=== PATIENT | female | born 1980 | race Caucasian/White ===

== ENCOUNTER 2016-08-15 14:24 | Emergency (ER) | payer OTHER ==
[2016-08-15 14:31] VITALS: BP 99/62
[2016-08-15] MEDS ORDERED: NS 0.9% 1000 ML* 1,000 ML IV ONE (15:20)
[2016-08-15 15:46] LABS: Hematocrit 36 % (35-47); Hemoglobin 12.1 g/dl (12.0-16.0); Mean Corpuscular HGB Conc 34 g/dl (31-36); Mean Corpuscular Hemoglobin 31 pg (27-31); Mean Corpuscular Volume 91 fL (80-97); Mean Platelet Volume 10 um3 (7.4-10.4); Red Blood Count 3.91 10^6/ul (4.0-5.4); Red Cell Distribution Width 14 % (10.5-15); White Blood Count 6.4 10^3/ul (3.5-10.8)
[2016-08-15 16:00] LABS: Albumin 3.9 g/dL (3.2-5.2); BUN/Creatinine Ratio 23.5 (8-20); EGFR African American 175.5 (>60); EGFR Non-African American 136.5 (>60); Globulin 2.6 g/dL (2-4); Potassium 3.6 mmol/L (3.5-5.0); Total Bilirubin 0.6 mg/dL (0.2-1.0); Total Protein 6.5 g/dL (6.4-8.9)
--- NOTE | 2016-08-15 16:31 | RAD ---
HISTORY: Pain and pelvic contractions, . The gestational age by dates is: None COMPARISONS: None available at the time of dictation. TECHNIQUE: Multiple transverse and longitudinal ultrasound images were obtained of the gravid uterus using Grayscale, color Doppler, spectral Doppler, and M-mode Doppler imaging. FINDINGS: /PLACENTAL EVALUATION: Number of fetuses: Single Presentation: Transverse head maternal right cardiac activity: 144 bpm Gross motion: Observed Placenta position: Posterior. There is complete placenta previa Amniotic fluid volume: Normal MARQUEZ: 8.4 cm BIOMETRY: Biparietal diameter: 3.76 cm 17 weeks, 4 days Head circumference: 13.56 cm 17 weeks, 1 day Abdominal circumference: 11.33 cm 17 weeks, 1 day Femur length: 2.19 cm 16 weeks, 4 days HC/AC: 1.2 Estimated weight: 173 grams, +/- 25 grams GESTATIONAL AGE: The composite gestational age is: 17 weeks, 1 day. The DIALLO is: January 22, 2017. ANATOMY: cranium: Not evaluated ventricles: Not evaluated choroid plexus: Not evaluated cerebellum: Not evaluated posterior fossa: Not evaluated face/orbits/lips: Not evaluated spine: Not evaluated heart: Normal 4 chamber diaphragm: Not evaluated stomach: Not evaluated kidneys: Not evaluated bladder: Not evaluated cord: Not evaluated CERVIX: The cervix is long and closed, without funneling.. The cervix measures 5 cm. OTHER: There is a subchorionic fluid collection along the left fundus IMPRESSION: 1. SINGLE LIVE INTRAUTERINE GESTATION AT 17 WEEKS AND 1 DAY BY COMPOSITE GESTATIONAL AGE. 2. COMPLETE PLACENTA PREVIA. RECOMMEND ATTENTION ON FOLLOW-UP IMAGING. 3. SMALL SUBCHORIONIC FLUID COLLECTION SUGGESTIVE OF SUBCHORIONIC HEMORRHAGE ALONG THE FUNDUS. 4. LIMITED EVALUATION OF ANATOMY. RECOMMEND DEDICATED ANATOMY SCAN AT THE NONACUTE SETTING
--- NOTE | 2016-08-15 17:08 | ED ---
I, Oh,Soliss, scribed for Juan Rizzo MD on 08/15/16 at 1522 . Abdominal Pain/Female - HPI Summary HPI Summary: This 36 y/o female presents to ED for acute, cramping lower abd pain since last night. Pt is currently 16 weeks , and pt states that the abd discomfort feels like "contraction". with last resulting in miscarriage. LMP was on 04/16/216. Pt denies any vaginal bleeding and reports only scant vaginal discharge. Primary care involves Dr. Smith and Dr. Felix as backend tester. PMHx includes factor V Leiden, and pt is currently on Lovenox. Pt is nonsmoker and nondrinker. - History of Current Complaint Chief Complaint: EDOBProblems Stated Complaint: 16 WEEKS PREG ABD PAIN Time Seen by Provider: 08/15/16 15:09 Hx Obtained From: Patient Hx Last Menstrual Period: 04/16/2016 ?: Yes Onset/Duration: Sudden Onset Timing: Constant Severity Initially: Moderate Severity Currently: Moderate Pain Intensity: 4 Pain Scale Used: 0-10 Numeric Location: Suprapubic Radiates: No Character: Cramping Aggravating Factor(s): Nothing Alleviating Factor(s): Nothing Associated Signs and Symptoms: Positive: Vaginal Discharge - scant. Negative: Fever, Vaginal Bleeding Allergies/Adverse Reactions: Allergies Allergy/AdvReac Type Severity Reaction Status Date / Time No Known Allergies Allergy Verified 08/15/16 14:31 PMH/Surg Hx/FS Hx/Imm Hx Endocrine/Hematology History: Reports: Other Endocrine/Hematological Disorders - Factor V Leiden Infectious Disease History: No Infectious Disease History: Denies: Traveled Outside the [place] in Last 30 Days - Family History Known Family History: Negative: Cardiac Disease - Social History Alcohol Use: None Hx Substance Use: No Substance Use Type: Reports: None Hx Tobacco Use: No Smoking Status (MU): Never Smoked Tobacco Review of Systems Negative: Fever Positive: Abdominal Pain. Negative: Nausea Positive: discharge - vaginal -- scant. Negative: other - vaginal bleeding Negative: Anxious, Depressed All Other Systems Reviewed And Are Negative: Yes Physical Exam - Summary Physical Exam Summary: VITAL SIGNS: Reviewed. GENERAL: Patient is a well developed and nourished female who is lying comfortable in the stretcher. Patient is not in any acute respiratory distress. HEAD AND FACE: Normocephalic and atraumatic. EYES: PERRLA, EOMI x 2, No injected conjunctiva. EARS: Hearing grossly intact. Ear canals and tympanic membranes are WNL. MOUTH: Oropharynx within normal limits. NECK: Supple, trachea is midline, no adenopathy, no JVD. CHEST: Symmetric, no tenderness at palpation LUNGS: Clear to auscultation bilaterally. No wheezing or crackles. CVS: RRR,, S1 and S2 present, no murmurs or gallops appreciated. ABDOMEN: Soft, non-tender. No signs of distention. Positive bowel sounds. No rebound no guarding, and no masses palpated. No abdominal bruit or pulsations. EXTREMITIES: FROM in all major joints, no edema, no cyanosis or clubbing. NEURO: Alert and oriented x 3. No acute neurological deficits. Speech is normal. SKIN: Dry and warm Triage Information Reviewed: Yes Vital Signs On Initial Exam: Initial Vitals Temp Pulse Resp BP Pulse Ox 98.3 F 97 16 99/62 100 08/15/16 14:24 08/15/16 14:24 08/15/16 14:24 08/15/16 14:24 08/15/16 14:24 Vital Signs Reviewed: Yes Diagnostics - Vital Signs Vital Signs Temp Pulse Resp BP Pulse Ox 08/15/16 14:24 98.3 F 97 16 99/62 100 - Laboratory Lab Results: Lab Results 08/15/16 08/15/16 08/15/16 Range/Units 15:30 15:30 15:30 WBC 6.4 (3.5-10.8) 10^3/ul RBC 3.91 L (4.0-5.4) 10^6/ul Hgb 12.1 (12.0-16.0) g/dl Hct 36 (35-47) % MCV 91 (80-97) fL MCH 31 (27-31) pg MCHC 34 (31-36) g/dl RDW 14 (10.5-15) % Plt Count 129 L (150-450) 10^3/ul MPV 10 (7.4-10.4) um3 Neut % (Auto) 81.6 (38-83) % Lymph % (Auto) 9.3 L (25-47) % Schuyler % (Auto) 8.0 (1-9) % Eos % (Auto) 0.5 (0-6) % Baso % (Auto) 0.6 (0-2) % Absolute Neuts (auto) 5.2 (1.5-7.7) 10^3/ul Absolute Lymphs (auto) 0.6 L (1.0-4.8) 10^3/ul Absolute Monos (auto) 0.5 (0-0.8) 10^3/ul Absolute Eos (auto) 0 (0-0.6) 10^3/ul Absolute Basos (auto) 0 (0-0.2) 10^3/ul Absolute Nucleated RBC 0 10^3/ul Nucleated RBC % 0 Sodium 132 L (133-145) mmol/L Potassium 3.6 (3.5-5.0) mmol/L Chloride 103 (101-111) mmol/L Carbon Dioxide 23 (22-32) mmol/L Anion Gap 6 (2-11) mmol/L BUN 12 (6-24) mg/dL Creatinine 0.51 (0.51-0.95) mg/dL Est GFR ( Amer) 175.5 (>60) Est GFR (Non-Af Amer) 136.5 (>60) BUN/Creatinine Ratio 23.5 H (8-20) Glucose 86 (70-100) mg/dL Calcium 9.0 (8.6-10.3) mg/dL Total Bilirubin 0.60 (0.2-1.0) mg/dL AST 13 (13-39) U/L ALT 11 (7-52) U/L Alkaline Phosphatase 31 L (34-104) U/L Total Protein 6.5 (6.4-8.9) g/dL Albumin 3.9 (3.2-5.2) g/dL Globulin 2.6 (2-4) g/dL Albumin/Globulin Ratio 1.5 (1-3) Beta HCG, Quant 01088.00 mIU/mL Blood Type O Positive Result Diagrams: 08/15/16 15:30 08/15/16 15:30 Lab Statement: Any lab studies that have been ordered have been reviewed, and results considered in the medical decision making process. - Additional Comments Diagnostic Additional Comments: [place] -- 1. SINGLE LIVE INTRAUTERINE GESTATION AT 17 WEEKS AND 1 DAY BY COMPOSITE GESTATIONAL AGE. 2. COMPLETE PLACENTA PREVIA. RECOMMEND ATTENTION ON FOLLOW-UP IMAGING. 3. SMALL SUBCHORIONIC FLUID COLLECTION SUGGESTIVE OF SUBCHORIONIC HEMORRHAGE ALONG THE FUNDUS. 4. LIMITED EVALUATION OF ANATOMY. RECOMMEND DEDICATED ANATOMY SCAN AT THE NONACUTE SETTING Re-Evaluation - Re-Evaluation First Eval Re-Evaluation Time: 16:55 Change: Unchanged Comment: MD in room to share imaging results and plan of care. backend tester consult was shared with pt and family member present, and they are agreeable. Abdominal Pain Fem Course/Dx - Course Course Of Treatment: This 36 y/o female with 16 weeks presents to ED with chief complaint of lower abd cramping. She denies any bleeding or discharge. Bloodwork is wnl. Pelvic US indicates no acute pathology with details of results as above. Physical finding is shared and discussed with Dr. cM. He recommends outpatient f/u with Dr. Felix. Pt will continue with lovenox as before. Dr. Mc does not recommend pelvic exam. Pt is hemodynamically stable and A & Ox3. Pt is recommended to return to ED with any worsening of abd pain and vaginal bleeeding. I discussed all my findings and test results with the patient. Patient understands and agrees. Patient was instructed to return to the emergency room immediately if any of the symptoms return or worsens. Patient understands and agrees. Plan of care was discussed with the patient and patient understands and agrees with the plan of care. All questions were answered at patient satisfaction. There were no further complaints or concerns. Patient was instructed to follow up with primary care physician within 3 to 5 days. Patient is hemodynamically stable. Patient is alert and oriented x 3. No acute neurological deficits. - Diagnoses Provider Diagnoses: Abdominal pain, Threatened miscarriage - Provider Notifications Discussed Care Of Patient With: Dr. Mc (backend tester) at 1647 PM Time Discussed With Above Provider: 16:47 Discharge - Discharge Plan Condition: Stable Disposition: HOME Patient Education Materials: Abdominal Pain in (ED), Threatened Miscarriage (ED) Referrals: Swapnil Felix MD [Medical Doctor] - 2 Days The documentation as recorded by the Goran diaz Soohyun accurately reflects the service I personally performed and the decisions made by me, Juan Rizzo MD.
== END 2016-08-15 17:46 | disposition home or self-care (01) ==
LOC: ED 14:24
DX: O20.0 Threatened abortion (principal); Z3A.16 16 weeks gestation of pregnancy
CPT/HCPCS: 36415; 76815; 80053; 84702; 85025; 86900; 86901; 96360; 99282